=== PATIENT | male | born 1935 | race Caucasian/White ===

== ENCOUNTER 2016-05-03 05:55 | Day surgery (SDC) | payer MEDICARE, OTHER ==
[2016-05-03] MEDS ORDERED: SODIUM CHL 0.9% 100ML MINI-BAG 100 ML IVPB ONE (06:50)
[2016-05-03] MEDS ORDERED: LACTATED RINGERS 1,000 ML ONE ×2 (06:50→07:49)
[2016-05-03] MEDS ORDERED: ceFAZolin SODIUM 1 GM VIAL ONE (06:50)
[2016-05-03] MEDS ORDERED: PROPOFOL 200 MG/20 ML VIAL IV ONE (07:00)
[2016-05-03] MEDS ORDERED: ATROPINE SULFATE 0.4 MG/ML 1ML VIAL ONE (07:00)
[2016-05-03] MEDS ORDERED: NEOSTIGMINE METHYLSULFATE 1 MG/ML ML IV ONE (07:00)
[2016-05-03] MEDS ORDERED: METOCLOPRAMIDE HCL INJ 10 MG/2 ML VIAL ONE (07:00)
[2016-05-03] MEDS ORDERED: fentaNYL CITRATE INJ 50 MCG/ML AMP ONE (07:48)
[2016-05-03] MEDS ORDERED: LIDOCAINE 2 % GEL 5 ML TUBE TOP ONE (07:49)
[2016-05-03] MEDS ORDERED: ROCURONIUM BROMIDE 10 MG/ML VIAL ONE (07:49)
[2016-05-03] MEDS ORDERED: BUPIVACAINE 0.25% W/EPI 50 ML VIAL INJ ONE (08:05)
[2016-05-03] MEDS ORDERED: HEPARIN SODIUM (PORCINE) 10,000 UNITS/ML VIAL ONE (08:06)
--- NOTE | 2016-05-03 11:23 | OP ---
DATE OF PROCEDURE: 05/03/16 PREOPERATIVE DIAGNOSIS: 1. Symptomatic cholelithiasis. 2. Suspected fatty infiltration of the liver. POSTOPERATIVE DIAGNOSIS: 1. Symptomatic cholelithiasis. 2. Chronic cholecystitis. 3. Apparent normal liver. PROCEDURE: 1. Laparoscopic cholecystectomy with intraoperative cholangiography. SURGEON: Bipin Cifuentes MD. CARTOON ANIMATOR: None. ANESTHESIA: Local infiltration of 0.25% Marcaine with epinephrine and general endotracheal anesthesia. INDICATION: The patient is a 81-year-old male who has a history of some abdominal discomfort, bloating, and some fatty food intolerance. He had a CT scan revealing gallstones and what was suspicious for a fatty liver. The patient was brought to the Surgical Suite today for cholecystectomy and liver biopsy after the risks, benefits and alternatives to the procedure were discussed and accepted. FINDINGS: As noted, the liver appeared to be normal. The gallbladder wall was mildly thickened. Intraoperative cholangiography revealed free flow into the duodenum with no filling defects or strictures noted. There was a stone noted in the gallbladder by palpation. DESCRIPTION OF PROCEDURE: After adequate general endotracheal anesthesia was obtained, the patient was prepped and draped in the usual sterile manner. Surgical time-out was taken. The supraumbilical area was infiltrated with local anesthesia. A vertical incision was made with a sharp knife. Dissection was carried down to the midline fascia using blunt dissection. Traction sutures were placed on either side of the midline. A small incision was made in the midline fascia and the peritoneum was opened bluntly. Morris trocar was introduced under direct vision into the abdominal cavity and fixed in place with the 20 mL balloon. CO2 was then insufflated until a pressure of 12 mmHg was reached and the abdomen was tympanitic in all four quadrants. When this was done, the laparoscope was introduced. The abdomen was inspected with the previously noted findings. The patient was then placed in reverse Trendelenburg position, turned to the left side. The upper abdominal ports were placed under direct vision. The gallbladder was grasped, retracted anteriorly and laterally. The neck of the gallbladder was retracted laterally. The triangle of Calot was then explored with the cystic duct and cystic artery identified and isolated. The cystic duct was hemoclipped once proximally. The cystic artery was hemoclipped twice proximally and once distally. A small incision was made in the cystic duct. The cholangiogram catheter was introduced through a separate stab wound in the right upper quadrant, introduced into the cystic duct and clipped in place. Cholangiograms were then taken using fluoroscopy which revealed free flow into the duodenum with no filling defects or strictures noted. When this was done, the cystic duct catheter was removed. The cystic duct was hemoclipped three times distally and divided between the hemoclips. The cystic artery was divided. The gallbladder was then dissected free from the gallbladder bed of the liver using electrocautery. The gallbladder was removed from the supraumbilical port site in the usual manner under direct vision. It was then placed on the back table. The gallbladder bed of the liver was inspected and there were two small areas of oozing which were controlled easily with electrocautery. The janny hepatis was inspected and no bleeding or bile leak was identified. At this point, the subhepatic space and subphrenic space were irrigated with saline. The effluent was noted to be clear. The upper abdominal ports were removed under direct vision and adequate hemostasis was noted. At this point, the CO2, the laparoscope and the supraumbilical port were removed. The supraumbilical port site fascia was approximated with two [id number] sutures of 0 Vicryl. Subcutaneous tissue was irrigated with saline. Skin edges were approximated with 4-0 Vicryl subcuticular sutures, benzoin and Steri-Strips. Sterile dressings were applied. The patient was awakened and taken to the Recovery Room in good and stable condition. Estimated blood loss was less than 50 mL. All sponge, needle and instrument counts were correct. #[id number] [facility]
[2016-05-03 14:02] VITALS: BP 148/75; TEMP 97.5; O2SAT 95
== END 2016-05-03 12:20 | disposition home or self-care (01) ==
LOC: AMB 05:55
PROVIDERS: ATTEND Surgery
DX: K80.10 Calculus of gallbladder with chronic cholecystitis without obstruction (principal); E78.5 Hyperlipidemia, unspecified; E03.9 Hypothyroidism, unspecified; I25.10 Atherosclerotic heart disease of native coronary artery without angina pectoris; I10 Essential (primary) hypertension; G47.33 Obstructive sleep apnea (adult) (pediatric); N40.0 Benign prostatic hyperplasia without lower urinary tract symptoms; M81.0 Age-related osteoporosis without current pathological fracture; R94.31 Abnormal electrocardiogram [ECG] [EKG]; Z95.1 Presence of aortocoronary bypass graft; Z87.891 Personal history of nicotine dependence; Z79.82 Long term (current) use of aspirin; Z79.899 Other long term (current) drug therapy
CPT/HCPCS: 00790; 36415; 47563; 76000; 80053; 81001; 85025; 88304; J0690; J1644; J2710; J2765; J3010; J3490; J7050; J7120

== ENCOUNTER → 2016-06-22 | Outpatient (CLI) | payer MEDICARE, OTHER ==
--- NOTE | 2016-06-25 05:24 | MRI ---
EXAM DESCRIPTION: MRI lumbar spine CLINICAL HISTORY: Radiculopathy radiating down the right leg. Lumbar spine pain COMPARISON: None Available. TECHNIQUE: Standard sagittal and axial MR images of the lumbar spine. FINDINGS: L5-S1: Mild facet arthrosis. Asymmetric disc degeneration along the left lateral aspect with disc osteophyte ridging narrowing the foramen and abutting and minimally deforming the exiting left L5 nerve. There is no central canal stenosis or descending nerve impingement. No exiting right L5 nerve impingement L4-5: Mild facet arthrosis and hypertrophy. Asymmetric complete loss of disc height right lateral. Circumferential endplate osteophyte ridging flattening the ventral thecal sac without descending nerve compression. Narrowing of the entry zone left foramen from disc osteophyte ridge and facet spur abutting but not compressing left L4 nerve. Mild right foraminal narrowing without right L4 nerve compression L3-4: Moderate facet arthrosis and hypertrophy. Disc osteophyte ridging flattening the ventral thecal sac. Asymmetric mild narrowing right subarticular recess abutting and maybe impinging the descending right L4 nerve. No central canal stenosis. Facet spur abuts and deforms the exiting right L3 nerve with preservation of perineural fat. No nerve compression in the foramen. Disc osteophyte ridge abuts the L3 nerves bilaterally lateral to the foramen without displacement or compression L2-3: Moderate right and mild left facet arthrosis. Disc osteophyte ridging flattens the ventral thecal sac with asymmetric right subarticular recess narrowing which may impinge the descending right L3 nerve. Foraminal stenosis without exiting L2 nerve compression L1-2: Mild facet arthrosis. No focal disc abnormality, canal stenosis or nerve impingement T12-L1: No canal or foraminal narrowing Conus medullaris and cauda equina are normal Minimal degenerative endplate edema posteriorly at L2-3 to the right of midline and L3-4 to the right of midline. No marrow infiltration or focal marrow lesion. No paravertebral muscle abnormality No mass or adenopathy in the pelvis. Partially visualized renal lesions incompletely characterized, probably cysts. Visualized well-circumscribed high T2 signal masses IMPRESSION: Multilevel disc and facet degeneration with levoscoliosis. Asymmetric subarticular recess stenosis on the right at L2-3 and L3-4 possibly impinging the descending right L3 and L4 nerves Bilateral renal lesions probably cysts. Recommend renal sonogram to confirm Electronically signed by: Alex Chandler MD 06/24/2016 3:56 PM [employer]
== END | disposition home or self-care (01) ==
LOC: MRI 12:37
PROVIDERS: ATTEND Family Medicine
DX: M51.36 Other intervertebral disc degeneration, lumbar region (principal)

== ENCOUNTER → 2016-08-07 | Outpatient (CLI) | payer MEDICARE, OTHER | END | disposition home or self-care (01) | LOC: GMAM 11:06 | PROVIDERS: ATTEND Family Medicine | DX: E03.9 Hypothyroidism, unspecified (principal) ==

== ENCOUNTER → 2016-11-21 | Outpatient (CLI) | payer MEDICARE, OTHER | LOC: GMA 16:20 | PROVIDERS: ATTEND Nurse Practitioner Family | DX: I48.2 Chronic atrial fibrillation (principal); I25.10 Atherosclerotic heart disease of native coronary artery without angina pectoris; I10 Essential (primary) hypertension; Z79.899 Other long term (current) drug therapy ==

== ENCOUNTER → 2017-04-01 | Outpatient (CLI) | payer MEDICARE, OTHER | END | disposition home or self-care (01) | LOC: GMAM 15:24 | PROVIDERS: ATTEND Family Medicine | DX: E03.9 Hypothyroidism, unspecified (principal); D03.9 Melanoma in situ, unspecified; Z12.5 Encounter for screening for malignant neoplasm of prostate; E29.9 Testicular dysfunction, unspecified | CPT/HCPCS: 84403; 84439; 84443; G0103 ==

== ENCOUNTER → 2017-04-03 | Outpatient (CLI) | payer MEDICARE, OTHER | END | disposition home or self-care (01) | LOC: GMAM 16:35 | PROVIDERS: ATTEND Family Medicine | DX: M25.572 Pain in left ankle and joints of left foot (principal) ==

== ENCOUNTER → 2017-06-04 | Outpatient (CLI) | payer MEDICARE, OTHER | LOC: GMAM 14:20 | PROVIDERS: ATTEND Family Medicine | DX: I25.10 Atherosclerotic heart disease of native coronary artery without angina pectoris (principal); Z01.810 Encounter for preprocedural cardiovascular examination; Z79.899 Other long term (current) drug therapy ==

== ENCOUNTER → 2017-07-16 | Outpatient (CLI) | payer MEDICARE, OTHER | LOC: GMA 14:41 | PROVIDERS: ATTEND Physician Assistant | DX: R30.0 Dysuria (principal) ==

== ENCOUNTER → 2017-07-19 | Outpatient (CLI) | payer MEDICARE, OTHER ==
--- NOTE | 2017-07-20 17:03 | MRI ---
EXAM DESCRIPTION: Lumbar Spine w/o Contrast MRI. CLINICAL HISTORY: LOW BACK PAIN COMPARISON: Noncontrast MRI lumbar spine 06/22/2016. TECHNIQUE: Multiplanar, multiple standard sequences, non contrast MRI, lumbar spine. FINDINGS: L5-S1: Diffuse disc desiccation and moderate disc space loss. Anterior bulging and endplate ridging. Left side Modic type II endplate reactive changes with disc spur complex encroaching on the left foramen and impinging the exiting left L5 nerve. Mild narrowing of the right foramen. Posterior flavum ligament hypertrophy and minimal facet arthrosis. Mild canal narrowing. L4-5: Moderate disc space loss predominantly to the right of midline with Modic type II endplate reactive changes. Right side disc spur complex encroaching on the foramen and abutting the exiting right L4 nerve with moderate narrowing. Anterior disc bulging with endplate ridging. Posterior 4 mm disc bulge is broad-based and abutting the bilateral descending L5 nerves above the lateral recess. Left facet arthrosis and bilateral flavum hypertrophy. Left Facet arthrosis impressing on the exiting left L4 nerve L3-4: Disc desiccation and minimal disc space loss. Anterior bulging with endplate ridging. Posterior disc osteophyte bulge into the canal with Modic type II endplate reactive changes 4 mm disc bulge to the right of midline abutting the descending right L4 nerve above the lateral recess. Flavum ligament hypertrophy and bilateral facet arthrosis. Mild canal narrowing. Left facet arthrosis abutting the exiting left L3 nerve with moderate to severe foraminal narrowing. Right facet arthrosis impressing on the exiting right L3 nerve with foraminal stenosis. L2-3: Disc desiccation and minimal disc space loss mostly posterior. Anterior bulging with endplate ridging. Posterior broad-based 4 to 5 mm disc bulge. Protrusion into the right of midline with annular fissure and disc encroaching on the descending right L3 nerve in the right subarticular recess. Right paracentral mild canal stenosis. Moderate right foraminal narrowing and mild left foraminal narrowing. L1-2: Disc desiccation with posterior disc space loss. Anterior bulging and endplate ridging. No posterior bulge. Bilateral flavum ligament hypertrophy abutting the thecal sac. Mild right facet arthrosis. Bilateral mild foraminal narrowing. T12-L1: Minimal disc desiccation with anterior right side endplate ridging. No posterior bulging. Posterior elements unremarkable. Bilateral foramina are patent. Paravertebral soft tissues paraspinal muscle atrophy. Ectasia of the distal abdominal aorta.. Normal marrow signal in the remaining vertebral bodies and the posterior elements. L1-L5 levoscoliosis. Vertebral bodies are not compressed at any level. IMPRESSION: 1. Moderate spondylosis on the left at L5-S1 encroaching on the left foramen and impinging the exiting left L5 nerve. Stable since the prior study. 2. Moderate spondylosis to the right of midline at L4-5. Right side disc spur encroachment on the right foramen and abutting the exiting right L4 nerve. Left foraminal stenosis. Correlate for bilateral L4 radiculopathy. Posterior broad-based disc bulge abutting the bilateral descending L5 nerves. Stable since the prior study. 3. L3-4 right side foraminal stenosis and impingement exiting right L3 nerve. Progressed since the prior study. Severe foraminal narrowing on the left abutting the exiting left L3 nerve. Right posterior disc bulge abutting the descending right L4 nerve above the lateral recess. 4. Posterior broad-based L2-3 disc bulge. Right side disc may be impinging the right L3 nerve in the right subarticular recess. Right paracentral mild canal stenosis. Progressed since the prior study. Electronically signed by: Mack Arriaga MD 07/20/2017 5:00 PM CDT
== END ==
LOC: MRI 11:00
PROVIDERS: ATTEND Physician Assistant
DX: M51.16 Intervertebral disc disorders with radiculopathy, lumbar region (principal)